=== PATIENT | female | born 1995 | race African-American/Black ===

== ENCOUNTER 2016-05-16 19:35 | Inpatient (IN) | payer OTHER ==
--- NOTE | ~2016-05-16 | PA ---
Unit #: [id number] #: [id number] Patient: ANSHU SULTANA [id number] [place] [address] [id number] I MR#: [id number] NAME: ANSHU SULTANA ROOM: P110 Age: 20 Sex: F Admission Date: 05/16/2016 : 1995 Date of Assessment: 05/17/2016 Attending Physician: David Ng M.D. Admitting Physician: David Ng M.D. Primary Care Physician: Primary Care Physician No PSYCHIATRIC ASSESSMENT IDENTIFYING INFORMATION The patient is a 20-year-old female with a history of schizoaffective disorder, admitted with increasing psychosis. CHIEF COMPLAINT "Don't you have the report." INFORMANT Patient and chart, reliability fair. HISTORY OF PRESENT ILLNESS The patient is a 20-year-old female who reportedly has 2 previously psychiatric hospitalizations while residing in [place] and has been diagnosed with schizoaffective disorder. She is currently prescribed Risperdal and Zyprexa thought it is unclear who is prescribing these medications. The patient has apparently been responding to internal stimuli, sleeping all day, and has been exhibiting bizarre behavior for the past couple of weeks. It is unclear whether or not the patient has been compliant with her prescribed medications. She has been abusing no psychoactive substances pre report. She cooperates less than optimally during attempted interview today. She does, however, deny current suicidal or homicidal ideation and denies any psychotic symptoms. She denies recent changes in sleep or appetite. PAST PSYCHIATRIC HISTORY As above. PAST MEDICAL HISTORY Significant for history of ear surgeries x3. MEDICATIONS Risperdal, olanzapine. ALLERGIES None reported. FAMILY HISTORY Not obtained. SOCIAL HISTORY The patient denies use of tobacco, alcohol, and street drugs. Further history cannot be obtained though it appears as though the patient may originally be from [place]. Unit #: [id number] #: [id number] Patient: ANSHU SULTANA MENTAL STATUS EXAMINATION Examination at this time reveals the patient to be a well-developed well-nourished female appearing her stated age. She is in no apparent physical distress at the time of examination. She is awake and alert but testing of orientation is not possible secondary to the patient's refusal to comply. Her speech is impoverished and evasive, and her mood somewhat irritable. The patient terminates the interview by pulling a blanket over her head. ASSETS AND LIABILITIES The patient's assets: Supportive family. Liabilities: Poor compliance with treatment. DIAGNOSTIC IMPRESSION Schizoaffective disorder. TREATMENT PLAN The patient remains hospitalized for safety and stabilization. I will go ahead and discontinue Risperdal and olanzapine and looked up to start the patient on Depo medication as it is my suspicion that the patient has probably not been compliant with prescribed medications. Accordingly, we will begin Invega 6 mg at h.s. to assess its efficacy and tolerability, and we will consider initiation of Depo Invega Sustenna as the patient's hospitalization progresses. ESTIMATED LENGTH OF STAY 14 days. Dictated by... David Ng M.D. RHIANNA/finesse TD: 05/17/2016 15:05 JOB #: [id number] PSYCHIATRIC ASSESSMENT X David Ng MD X PSYCHIATRIC ASSESSMENT
--- NOTE | ~2016-05-16 | PN ---
Unit #: [id number] #: [id number] Patient: ANSHU SULTANA [id number] [facility] [address] [place] [address] [id number] MR#: [id number] NAME: ANSHU SULTANA ROOM: [facility] Age: 20 Sex: F Admission Date: 05/16/2016 : 1995 Attending Physician: David Ng M.D. Admitting Physician: David Ng M.D. Primary Care Physician: Primary Care Physician Danae AVILA PROGRESS NOTES DATE 05/26/2016 DISCUSSION The patient is more pleasant and cooperative today. She is compliant with medications and active within the therapeutic milieu. We continue current treatment and should she sustain progress, discharge could take place as early as tomorrow. Dictated by... David Ng M.D. CB/hal TD: 05/26/2016 16:00 JOB #: [id number] [facility] PROGRESS NOTES X David Ng MD X PROGRESS NOTE
--- NOTE | ~2016-05-16 | PN ---
Unit #: [id number] #: [id number] Patient: ANSHU SULTANA [id number] [facility] [address] [place] [address] [id number] MR#: [id number] NAME: ANSHU SULTANA ROOM: P110 Age: 20 Sex: F Admission Date: 05/16/2016 : 1995 Attending Physician: David Ng M.D. Admitting Physician: David Ng M.D. Primary Care Physician: Primary Care Physician Danae AVILA PROGRESS NOTES DATE 05/19/2016 DISCUSSION The patient is abed today with blanket covering her head. She briefly removes the blanket to claim that the Risperdal caused her "to see a snake in the room" and a monkey last night. She then yells that this physician "does not care about her" before covering her head with the blanket and refusing to continue interview. Dictated by... David Ng M.D. CB/bzgómez TD: 05/19/2016 14:34 JOB #: [id number] MARGARITA PROGRESS NOTES X David Ng MD PROGRESS NOTE
--- NOTE | ~2016-05-16 | PN ---
Unit #: [id number] #: [id number] Patient: ANSHU SULTANA [id number] [facility] [address] [place] [address] [id number] I MR#: [id number] NAME: ANSHU SULTANA ROOM: P110 Age: 20 Sex: F Admission Date: 05/16/2016 : 1995 Attending Physician: David Ng M.D. Admitting Physician: David Ng M.D. Primary Care Physician: Primary Care Physician Danae AVILA PROGRESS NOTES DATE 05/24/2016 DISCUSSION The patient is abed today. She states that she wishes to share something with this physician then leave the bed and drops per trousers revealing her underwear. This physician immediately terminates the interview at that point and will place the patient on special observation for sexual acting out. We will increase her Geodon to 40 mg twice daily. Dictated by... David Ng M.D. CB/julius TD: 05/25/2016 00:19 JOB #: [id number] MARGARITA PROGRESS NOTES X David Ng MD PROGRESS NOTE
--- NOTE | ~2016-05-16 | PN ---
Unit #: [id number] #: [id number] Patient: ANSHU SULTANA [id number] [facility] [address] [place] [address] [id number] I MR#: [id number] NAME: ANSHU SULTANA ROOM: [facility] Age: 20 Sex: F Admission Date: 05/16/2016 : 1995 Attending Physician: David Ng M.D. Admitting Physician: David Ng M.D. Primary Care Physician: Primary Care Physician Danae AVILA PROGRESS NOTES DATE 05/25/2016 DISCUSSION The patient remains seclusive to rook. Staff has noted the patient masturbating on several occasions, and her sexually inappropriate behavior seems to be escalating. Further upward titration may become necessary. Dictated by... David Ng M.D. CB/finesse TD: 05/25/2016 14:33 JOB #: [id number] MARGARITA VILLAR NOTES X David Ng MD PROGRESS NOTE
--- NOTE | ~2016-05-16 | PN ---
Unit #: [id number] #: [id number] Patient: ANSHU SULTANA [id number] [facility] [address] [place] [address] [id number] MR#: [id number] NAME: ANSHU SULTANA ROOM: [facility] Age: 20 Sex: F Admission Date: 05/16/2016 : 1995 Attending Physician: David Ng M.D. Admitting Physician: David Ng M.D. Primary Care Physician: Primary Care Physician Danae AVILA PROGRESS NOTES DATE 05/23/2016 DISCUSSION The patient continues to comply with medications. Staff reports no management issues. I have again attempted to redirect her expectations of inpatient care during today's interview. Dictated by... David Ng M.D. CB/julius TD: 05/24/2016 00:34 JOB #: [id number] MARGARITA PROGRESS NOTES X David Ng MD X PROGRESS NOTE
--- NOTE | ~2016-05-16 | PN ---
Unit #: [id number] #: [id number] Patient: ANSHU SULTANA [id number] [facility] [address] [place] [address] [id number] I MR#: [id number] NAME: ANSHU SULTANA ROOM: P110 Age: 20 Sex: F Admission Date: 05/16/2016 : 1995 Attending Physician: David Ng M.D. Admitting Physician: David Ng M.D. Primary Care Physician: Primary Care Physician Danae VILLAR NOTES DATE 05/18/2016 DISCUSSION The patient is more awake and alert when seen today. She states that she will not comply with Invega after having been given information regarding the side effects of this medication. I have attempted to explain to the patient that Depot medication would be a good option for her given her history of poor compliance which she is having notably. I have also attempted to explain to the patient that the warnings to which she refers, i.e., stroke, increased risk of stroke, myocardial infarction, etc., are aimed more at an elderly population and are in fact box warning that apply to all second-generation antipsychotics. Unfortunately, the patient has no interest in Invega or initiation of Depot medication. I will therefore restart Risperdal 2 mg twice daily. Dictated by... Jo Lao TD: 05/18/2016 14:21 JOB #: [id number] MARGARITA VILLAR NOTES X David Ng MD PROGRESS NOTE
--- NOTE | ~2016-05-16 | HP ---
Unit #: [id number] #: [id number] Patient: LISA SULTANA [id number] [place] [address] [id number] MR#: [id number] NAME: LISA SULTANA ROOM: P110 Age: 20 Sex: F Admission Date: 05/16/2016 : 1995 Attending Physician: David gN M.D. Admitting Physician: David Ng M.D. Primary Care Physician: Primary Care Physician No HISTORY AND PHYSICAL HISTORY OF PRESENT ILLNESS Lisa is a 20 year old admitted to [address] [place] [address] with psychotic behavior. PAST MEDICAL HISTORY Nothing significant. PAST SURGICAL HISTORY PE tubes. ALLERGIES No known drug allergies. SOCIAL HISTORY She denies cigarettes, alcohol and illicit drug use. FAMILY HISTORY Medically noncontributory. REVIEW OF SYSTEMS CONSTITUTIONAL: No fever or chills. HEENT: Denies any sore throat, ear pain or runny nose. CARDIOVASCULAR: Denies chest pain, irregular heart rhythm or palpitations. CHEST: Denies shortness of breath or cough. No hemoptysis. GASTROINTESTINAL: Denies nausea, vomiting, diarrhea or chronic constipation. ENDOCRINE: Denies history of increased thirst or urination. No recent significant weight loss or gain. GENITOURINARY: Denies dysuria, frequency, or hematuria. SKIN: Denies any rashes. HEMATOLOGIC: Denies history of increased bleeding or bruising. MUSCULOSKELETAL: Denies any hot, swollen joints. No generalized muscle pain. NEUROLOGIC: Denies problems with vision or speech. No frequent, severe headaches. No numbness, tingling or weakness in any extremities. Denies loss of bladder or bowel control. CURRENT MEDICATIONS 1. Invega 6 mg q.a.m. 2. Milk of Magnesia p.r.n. 3. Maalox p.r.n. 4. Tylenol p.r.n. Unit #: [id number] #: [id number] Patient: LISA SULTANA PHYSICAL EXAMINATION GENERAL: Alert, well-nourished, in no apparent distress. VITAL SIGNS: Blood pressure 122/72, heart rate 80, respirations 16, temperature 98.6. WEIGHT: 145 pounds. HEIGHT: 5'2". SKIN: Warm and dry without rash or lesion. HEENT: Normocephalic. TMs not viewed. Oral and nasal passages clear. Conjunctivae clear. Pupils equal, round and reactive to light and accommodation. Extraocular movements intact. NECK: Supple without lymphadenopathy or thyromegaly. HEART: Regular rate and rhythm without murmur. LUNGS: Clear. ABDOMEN: Soft, nontender. : Not done. EXTREMITIES: No evidence of cyanosis, clubbing or edema. Moves all extremities without focal deficit. NEUROLOGICAL: Grossly within normal limits. Cranial Nerves: II: Visual crowe are intact. III, IV AND : Extraocular movements are intact. Pupils are equal, round and reactive to light. V: Facial sensation is grossly normal. VII: Facial movements and expression are normal. VIII: Auditory acuity grossly intact. IX, X: Uvula is midline. Phonation is normal. XI: Patient shrugs shoulders and turns head normally. XII: Tongue protrudes in the midline. Sensory and Motor Function: Sensory and motor sensation is grossly normal. Motor: moves all extremities well. Coordination: Gait is normal. Deep Tendon Reflexes: Intact. IMPRESSION Psychiatric admission RECOMMENDATIONS PSYCHIATRIC: Per psychiatrist. MEDICAL: I see no contraindications to participating in facility's activities. MEDICAL PROGNOSIS Good. MEDICAL CONDITION Stable. Dictated by... Dorinda Ramos PDarronADarron-Ted. for Jo Polanco/julius TD: 05/18/2016 00:28 JOB #: [id number] Unit #: [id number] #: [id number] Patient: LISA SULTANA HISTORY AND PHYSICAL X Dorinda Ramos X HISTORY AND PHYSICAL
--- NOTE | ~2016-05-16 | DS ---
Unit #: [id number] #: [id number] Patient: ANSHU SULTANA [id number] [facility] [address] [place] [address] [id number] MR#: [id number] NAME: ANSHU SULTANA ROOM: P110 Age: 20 Sex: F Admission Date: 05/16/2016 : 1995 Discharge Date: 05/27/2016 Attending Physician: David Ng M.D. Primary Care Physician: Primary Care Physician No DISCHARGE SUMMARY REASON FOR ADMISSION The patient is 20-year-old single female, admitted with recurrent symptoms of psychosis. HOSPITAL COURSE The patient was admitted to the [address] [place] [address] because of her history of poor compliance with medication. There were sought on the part of this physician that the patient will be a good candidate for initiation of deep home medication. The patient however declined this option instead a trial of Geodon was initiated with upper titration to a final dose of 40 mg daily. The patient seemed to tolerate the medication well. The patient reported no psychotic symptoms on 05/27/2016. Requested discharge and it was so ordered. FINAL DIAGNOSES Chronic paranoid schizophrenia. DISPOSITION ON DISCHARGE The patient is discharged on the following medications: Geodon 40 mg b.i.d. for psychosis. DISCHARGE INSTRUCTIONS No dietary or physical restrictions were placed upon the patient at the time of discharge. FOLLOWUP Followup will take place through the auspices of community mental health resources. PROGNOSIS The patient's prognosis is considered fair. Dictated by... David Ng M.D. CB/edouard TD: 05/28/2016 05:02 JOB #: [id number] Unit #: [id number] #: [id number] Patient: ANSHU SULTANA DISCHARGE SUMMARY X David Ng MD X DISCHARGE SUMMARY
--- NOTE | ~2016-05-16 | PN ---
Unit #: [id number] #: [id number] Patient: ANSHU SULTANA [id number] [facility] [address] [place] [address] [id number] MR#: [id number] NAME: ANSHU SULTANA ROOM: [facility] Age: 20 Sex: F Admission Date: 05/16/2016 : 1995 Attending Physician: David Ng M.D. Admitting Physician: David Ng M.D. Primary Care Physician: Primary Care Physician Danae AVILA PROGRESS NOTES DATE 05/20/2016 DISCUSSION The patient is abed today with a blanket covering her head. She does remove her blanket simply long enough to tell this physician that she has nothing to discuss. She is generally compliant. We are continuing current treatment. She is denying any active psychosis or suicidal ideation at this point. Dictated by... David Ng M.D. CB/hal TD: 05/20/2016 15:23 JOB #: [id number] MARGARITA PROGRESS NOTES X David Ng MD PROGRESS NOTE
--- NOTE | ~2016-05-16 | PN ---
Unit #: [id number] #: [id number] Patient: ANSHU SULTANA [id number] [facility] [address] [place] [address] [id number] MR#: [id number] NAME: ANSHU SULTANA ROOM: P110 Age: 20 Sex: F Admission Date: 05/16/2016 : 1995 Attending Physician: David Ng M.D. Admitting Physician: David Ng M.D. Primary Care Physician: Primary Care Physician Danae VILLAR NOTES DATE 05/22/2016 DISCUSSION The patient seems to be tolerating the switch to Geodon well. She is brighter today but states that she wishes to remain in hospital for "one year" to make sure that the medication will work. I have gently but firmly redirected that expectation today. Dictated by... David Ng M.D. CB/julius TD: 05/22/2016 22:05 JOB #: [id number] MARGARITA VILLAR NOTES X David Ng MD PROGRESS NOTE
--- NOTE | ~2016-05-16 | A ---
[facility] Nutrition Therapy DATE: 05/27/16 Patient: ANSHU KAYY Physician: ABRIL Address: [address] Room/Bed: P[address], Zip: [place] [address] Admit Date: 05/16/16 Date of : [birth year] Height: 5 2 Weight: [phone] NUTRITIONAL ASSESSMENT: REASON: LOS PATIENT ADMITTED FOR PSYCHOTIC BEHAVIORS PMH: NONE Anthropometrics: HT: 5'2", WT: 145#, BMI: 26.5, %IBW: 132 Labs: 05/16/16: CREA: 0.4 Meds: GEODON Assessment: CHART REVIEWED, EVENTS NOTED. PATIENT IS A 20 Y/O FEMALE ADMITTED FOR PSYCHOTIC BEHAVIORS. PATIENT IS CURRENTLY UNEMPLOYED, LIVES WITH PARENTS, AND DENIES ANY SUBSTANCE ABUSE. PATIENT STATED A GOOD APPETITE WITH WEIGHT GAIN, AND HAS HAD HYPERSOMNIA SLEEPING UP TO 18 HOURS A DAY. PATIENT HAS HAD A HX OF INPATIENT PSYCHIATRIC HOSPITALIZATION. IT IS SUSPTECTED THAT PATIENT HAS BEEN NON-COMPLIANT WITH PSYCH MEDS PRIOR TO ADMIT. NURSING REPORTS CONSISTENTLY GOOD PO INTAKES. PATIENT CONTINUES TO EXHIBIT BIZARRE BEHAVIORS AT TIMES. PATIENT IS ON A REGULAR DIET WITH NO SKIN OR GI ISSUES NOTED ATT. Dx: NO NUTRITION DX Intervention: 1. REGULAR DIET, 2. MEDS PER MD, 3. PSYCH Monitoring, Evaluation and Goals: 1. ADEQUATE PO INTAKES >50% OF MEALS 2. PREVENT, CORRECT MICRO/MACRO NUTRIENT DEFICIENCIES MONITOR: WEIGHTS, LABS, PO/FLUID INTAKES Recommendations: 1. CONTINUE REGULAR DIET TOLERATED 2. ENCOURAGE ADEQUATE PO AND FLUID INTAKES RD TO F/U PER PROTOCOL AND PRN R/T PATIENT NOT AT NUTRITIONAL RISK ATT [facility] Nutrition Therapy DATE: 05/27/16 Patient: ANSHU KAYY Physician: ABRIL Address: [address] Room/Bed: P[address], Zip: [place] [address] Admit Date: 05/16/16 Date of : [birth year] Height: 5 2 Weight: [phone] Respectfully, KORTNEY DOLL RD, LD [facility] cc: client file
== END 2016-05-27 18:22 | disposition home or self-care (01) | DRG 885 ==
LOC: P1S 19:35
DX: F20.0 Paranoid schizophrenia (principal)